=== PATIENT | female | born 1980 | race Caucasian/White ===

== ENCOUNTER 2017-01-13 03:34 | Emergency (ER) | payer OTHER ==
[~2017-01-13] VITALS: Ht 175.3 cm; Wt 65.8 kg
--- OUTSIDE RECORDS SUMMARY | 2017-01-13 03:44 | External Medical Summary Rpt | CCD ---
Author Author MARCELL Address Unknown Phone [email or web address] Purpose Continuity of Care Document - 09-06-2016 through 2016
--- OUTSIDE RECORDS SUMMARY | 2017-01-13 03:44 | External Medical Summary Rpt | CCD ---
Author Author MARCELL Address Unknown Phone Purpose Continuity of Care Document - 09-06-2016 through 2016
--- OUTSIDE RECORDS SUMMARY | 2017-01-13 03:44 | External Medical Summary Rpt | CCD ---
Author Author [employer] Organization [employer] Address Unknown Phone Unavailable Purpose Continuity of Care Document - through 2016
--- OUTSIDE RECORDS SUMMARY | 2017-01-13 03:45 | External Medical Summary Rpt ---
Author Author MARCELL Valerio, [employer] Organization [employer] Address Unknown Phone Unavailable Results Thyroxine (T4) free [Mass/volume] in Serum or Plasma Observa Value Referen Units Interpr Notes Date ti ce etation Range Thyroxine 0.76 - ng/dL Normal No Sep 06 (T4) 1.46 informati 2016 free on in 11:41 AM [Mass/vol source ume] in data Serum or Plasma Thyrotropin [Units/volume] in Serum or Plasma Observa Value Referen Units Interpr Notes Date ti ce etation Range Thyrotrop 0.358 - uIU/ml No No Sep 06 in 3.740 informati informati 2016 [Units/vo on in on in 11:41 AM lume] in source source Serum or data data Plasma
--- OUTSIDE RECORDS SUMMARY | 2017-01-13 03:45 | External Medical Summary Rpt | CCD ---
Demographics Preferred Language Ecuadorean Marital Status Unknown Pentecostal Affiliation Unknown Race Unknown Ethnic Group Unknown Author Author , MARCELL FAITH Address Unknown Phone Immunization Unable to retrieve immunization data due to connection failure with Immunization Registry. Please try again later.
--- OUTSIDE RECORDS SUMMARY | 2017-01-13 03:45 | External Medical Summary Rpt | CCD ---
Demographics Preferred Language Sierra Leonean Marital Status Unknown Voodoo Affiliation Unknown Race Unknown Ethnic Group Unknown Author Author , MARCELL FAITH Address Unknown Phone Immunization Unable to retrieve immunization data due to connection failure with Immunization Registry. Please try again later.
[2017-01-13] MEDS ORDERED: HYDROXYZINE HCL25 M1 PO (03:52)
[2017-01-13] MEDS ORDERED: LEVOTHYROXIN0.137 M1 PO (03:53)
[2017-01-13] MEDS ORDERED: ESCITALOPRAM10 M1 PO (03:53)
[2017-01-13] MEDS ORDERED: DICYCLOMINE HCL20 MG PO (03:53)
[2017-01-13] MEDS ORDERED: PROAIR HFA0.09 MG/AC IH (03:54)
--- NOTE | 2017-01-13 04:13 | Emergency Room Report ---
History of Present Illness Time Seen by [id number] Presenting Problem in Triage Pt arrived:Walked Presenting Problem:C/O PAIN TO LEFT SIDE OF ABD THAT RADIATES TO UPPER BACK, C/O VOMITING AND DIARRHEA X 2 TO [address] ARCHULETA ORDER WELLUBUTIN, WAS STOP AFTER 4 DAYS, PATIENT REPORTS ANXIETY ISSUES, REPORTS FALLING APROXIMATE 3 WEEKS AGO AND HIT HER HEAD Onset of symptoms date/time:12/23/16/ or onset unknown for:MEDICAL HX UNKNOWN Treatment Prior to Arrival: SEEN DR. 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 N Clinical Suspician of Infection? N Mental Status: 1 - Regular (Normal Baseline) Sepsis Risk:Low Sepsis Risk Have you (or family members/close friends) recently traveled outside the [place]? N If Yes, where/when: Have you had exposure to infectious disease within the past month? N TB? Other? Specify: Comment The patient complains of LEFT sided abdominal pain, vomiting, and diarrhea. She has had left-sided pain off and on for about 2 weeks. Pain is in the LEFT side of her abdomen diffusely into her LEFT hip and back area. She initially saw her shipbuilding draftsperson, Dr. Lemon. She was put on Bentyl. She followed up with her primary care physician, Dr. Archuleta, and it was felt symptoms might be related to anxiety and irritable bowel syndrome. She was put on Wellbutrin one week ago and had a bad reaction after 4 doses and it was stopped. She was put on Lexapro, told to begin taking it after one week. She had her first dose tonight and got worse. She has had bad vomiting and diarrhea since Saturday 5 days ago. She has not eaten much of anything since Saturday 2 days ago. states she is having "panic attacks" every evening starting at about 7 PM for one week. This is new for her. ALLERGIES Coded Allergies: Penicillins (Mild, I-RASH 01/13/17) bupropion (From WELLBUTRIN) (Mild, SEVERE ANXIETY, NAUSEA AND PAIN 01/13/17) Home Medications Reported Medications HYDROXYZINE HCL (Hydroxyzine HCl) 25 MG PO TID #30 Levothyroxine Sodium (Levothyroxine 0.137MG) 0.137 MG PO DAILY #27 Escitalopram Oxalate 10 MG PO DAILY #30 Dicyclomine Hcl (Dicyclomine Tab) 20 MG PO Q6HP PRN STOMACH CRAMP #120 Albuterol Sulfate (Proair Hfa) 1 PUFF IH Q6HP PRN BREATHING #9 History Medical History General CAD? No Angina: No VT: No Hypertension? Yes Hyperlipidemia? No CHF? No DVT? No PE? No COPD? No Asthma? No Anemia? No GERD? Yes Gastric ulcers? No GI Bleed? No Hernia? No Thyroid Problems? Yes Hypothyroidism? Yes CVA? No Seizures? No Diabetes? No Renal Insuffiency? No End Stage Renal Disease? No UTI? No Stones? No BPH? No GB Disease: No Nephritic Syndrome? No Asplenia? No Hepatitis? No Sickle Cell Disease? No Arthritis? No Migraines? Yes Cataracts? No Glaucoma? No MRSA? Yes HIV? No TB? No Anxiety? Yes Depression? Yes Cancer? Yes Site: LEFT LEG More? 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 LMP N/A Social History Smoking Hx Smoker: Former Smoker Tobacco: No Alcohol Alcohol: No Review of Systems All Other Systems Reviewed and Negative Constitutional denies fever Gastrointestinal abdominal pain, diarrhea, nausea, vomiting Physical Exam Vital Signs Vital Signs Date Time Temp Pulse Resp B/P Pulse O2 O2 Flow FiO2 Ox Delivery Rate 01/13 0610 97.8 60 20 109/54 100 01/13 0602 97.8 60 20 109/54 100 01/13 0600 20 01/13 0447 14 01/13 0343 97.8 80 12 148/75 97 General Appearance no apparent distress Eye Exam - bilateral eye normal exam, bilateral eye PERRL, bilateral eye EOMI Ear, Nose, Throat hearing grossly normal, normal ENT inspection Neck normal inspection, non-tender, supple, full range of motion Respiratory Status Yes: trachea midline, chest symmetrical. No: respiratory distress. Lung Sounds bilateral: normal breath sounds, lungs clear. Cardiovascular normal exam, regular rate/rhythm, no peripheral edema, no gallop, no JVD, no murmur, no rub, normal peripheral pulses Peripheral Pulses Pulses normal Yes Gastrointestinal normal bowel sounds, soft, no organomegaly, no guarding, no rebound, tenderness (generalized, more on left) Back no CVA tenderness Extremities non-tender, normal range of motion, normal inspection Neurologic alert, oriented x 3 Mental status anxious Skin intact, normal color, warm/dry Medical Decision Making LABS/Meds/Orders Pt receiving controlled substance in ED? Yes Phillip was queried for this patient? Yes Comment [id number] rxs. Results/Orders Laboratory Tests 01/13/17428: Urine Color YELLOW, Urine Appearance CLEAR, Urine pH 6.0, Ur Specific Hasty <= 1.005, Urine Protein NEGATIVE, Urine Ketones 1+ H, Urine Blood TRACE-INTACT, Urine Nitrate NEGATIVE, Urine Bilirubin NEGATIVE, Urine Urobilinogen 0.2, Ur Leukocyte Esterase NEGATIVE, Urine RBC OCC, Ur Squamous Epith Cells 5-10, Urine Glucose NEGATIVE 01/13/17425: Free T4 Cancelled 01/13/17424: Stl Aeromonas (PCR) Cancelled, Stl Cyclospora species Cancelled, Stool Rotavirus (PCR) Cancelled, Stool Astrovirus (PCR) Cancelled, Stool Campylobacter PCR Cancelled, Stool Cryptosporidium PCR Cancelled, Stl E. histolytica PCR Cancelled , Stool Giardia Lamblia PCR Cancelled, Stl P. shigelloides PCR Cancelled, Stool Sapovirus (PCR) Cancelled, Stool Vibrio (PCR) Cancelled, Stl Vibrio cholerae PCR Cancelled, Stl Norovirus GI/GII PCR Cancelled, Adenovirus (PCR) Cancelled, C. difficile Tox (PCR) Cancelled, E. coli (PCR) Cancelled, Salmonella (PCR) Cancelled, Yersinia (PCR) Cancelled 01/13/17407: TSH 0.22 L, Free T4 1.24 01/13/17407: Sodium 142, Potassium 3.8, Chloride 106, Carbon Dioxide 25, BUN 5 L, Creatinine 0.6, Estimated Creat Clear 135, Estimated GFR (MDRD) 113, Glucose 102, Calcium 9.1, Total Bilirubin 0.4, AST 18, ALT 15, Alkaline Phosphatase 49, Total Protein 7.8, Albumin 4.2, Globulin 3.6 H, Albumin/Globulin Ratio 1.2, Amylase 32, Lipase 88, WBC 8.3, RBC 4.72, Hgb 13.7, Hct 41.8, MCV 88.5, RDW 12.6, Plt Count 223, MPV 7.8, Gran % 76.7, Gran # 6.4, Lymphocytes % 16.9, Monocytes % 4.2, Eosinophils % 1.8, Basophils % 0.5, Lymphocytes # 1.4, Monocytes # 0.4, Eosinophils # 0.2, Basophils # 0.0, PUBS MCHC 32.8, MCH 29.0 Current Medication Orders Sig/Stacy Start time Last Medication Dose Route Stop Time Status Admin Lorazepam 1 MG ONCE ONE 01/13 06 DC 01/13 IV 01/13 0601 0600 Lorazepam 0 .STK-MED ONE 01/13 0559 DC .ROUTE Ketorolac 0 .STK-MED ONE 01/13 447 DC Tromethamine .ROUTE Ondansetron HCl 0 .STK-MED ONE 01/136 DC .ROUTE Ketorolac 30 MG ONCE ONE 01/135 DC 01/13 Tromethamine IV 01/136 0447 Ondansetron HCl 4 MG ONCE ONE 01/135 DC 01/13 IV 01/13 0446 0446 Sodium Chloride 1,000 ML .Q1H1M 01/13 0430 DC 01/13 IV 01/13 0530 0428 Sodium Chloride 1,000 ML .STK-MED ONE 01/13 0426 DC IV Sodium Chloride 10 ML PRN PRN 01/13 0400 DCD IV 01/14 0356 Sodium Chloride 10 ML PRN PRN 01/13 0400 DCD IV 01/14 0356 Orders Procedure Date/time Status DIET-NOTHING BY MOUTH 01/13 B Active THYROID STIMULATING HORMONE 01/13 426 Complete FREE T4 01/[address] ABD & PELVIS W/O CONTRAST 01/[address] ABD/PELVIS REQ 01/13 357 Active IV SALINE LOCK 01/13 357 Active URINALYSIS/COMPLETE 01/13 357 Complete URINE 01/13 357 Complete LIPASE 01/13 357 Complete CBC WITH AUTO DIFF 01/13 357 Complete CHEM 12 PROFILE 01/13 357 Complete AMYLASE 01/13 357 Complete XRAY/CT/US XRAY/CT/US CT abdomen, pelvis Comment CT scan interpreted by [facility] radiologist. Faxed report received and reviewed: 5 cm RIGHT ovarian cyst. Progress - 5:45 AM: states that patient is having waves of panic. Patient and are requesting a dose of medication for anxiety to help her sleep. Departure Departure Disposition DC Home or Self Care(routine) Clinical Impression Primary Impression: Left sided abdominal pain Secondary Impressions: Anxiety Diarrhea Qualifiers: Diarrhea type: unspecified type Qualified Code: R19.7 - Diarrhea, unspecified Vomiting Qualifiers: Vomiting type: unspecified Vomiting Intractability: non-intractable Nausea presence: with nausea Qualified Code: R11.2 - Nausea with vomiting, unspecified Condition STABLE Referrals Joao Archuleta MD (Family) Patient Instructions DI for Abdominal Pain-Adult, DI for Diarrhea and Traveler's Diarrhea -- Adult, DI for Vomiting -- Adult Additional Instructions Your TSH level is 0.22. Do not take thyroid replacement today. Call your physician tomorrow for further instructions regarding your thyroid replacement dosage. Do not take Lexapro today. Call your doctor tomorrow to discuss whether to continue this medication. Follow-up with your shipbuilding draftsperson for your ovarian cyst. Additional instructions for ABDOMINAL PAIN: See your physician as soon as possible for further evaluation. Return immediately if worsening abdominal pain, vomiting, shortness of breath, fever, vomiting of blood or abdominal distention. Prescriptions Current Visit Scripts Ondansetron (Zofran 4MG Odt) 4 MG PO Q8HP PRN NAUSEA AND VOMITING #10 ODT Loperamide Hcl (Loperamide) 2 MG PO Q6HP PRN diarrhea #10 CAP ED Critical Care Critical Care No at [id number]
[2017-01-13 04:18] LABS: HEMOGLOBIN 13.7 g/dL (12.2-16.2); LYMPH # 1.4 K/mm3 (0.7-4.5); LYMPH % 16.9 % (10-50.0)
[2017-01-13 04:38] LABS: URINE BILIRUBIN - DIPSTICK NEGATIVE (NEG); URINE BLOOD TRACE-INTACT (NEG)
[2017-01-13] MEDS ORDERED: ZOFRAN ODT4 MG PO (05:55)
[2017-01-13] MEDS ORDERED: IMODIUM 2MG. CAP2 MG PO (05:55)
[2017-01-13 06:10] VITALS: BP 109/54
--- NOTE | 2017-01-13 12:03 | RADIOLOGY REPORT PS360 ---
CT ABD PELVIS W/O CONTRAST Ordering Physician: Shankar Soliz MD Patient Age: 36 years: Female HISTORY: LEFT SIDE ABD PAIN WITH N/V/D TECHNIQUE: Helical CT scanning performed through abdomen and pelvis with no oral nor IV contrast utilized. Sagittal and coronal reconstructions on CT workstation. COMPARISON :No previous for comparison FINDINGS Lung bases. Clear no active disease. Heart normal size. Abdomen/pelvis. Lack of oral and IV contrast decreases sensitivity. Liver, spleen, pancreas unremarkable on this limited noncontrast study. Gallbladder unremarkable Adrenals unremarkable.. Kidneys: Unremarkable . No urinary calculi or obstruction. Ureters unremarkable PELVIS. Enlarged uterus with IUD in place. IUD seems to be appropriately positioned within this retroflexed retroverted uterus. Small amount of fluid the cul-de-sac most likely physiologic URINARY BLADDER. Diffuse wall thickening of requires correlation with urinalysis to exclude cystitis. RIGHT OVARY:. Enlarged and contains a large cyst. Overall the right ovary measures up to 5.8 cm x AP, 6.2 cm height , 4.5 cm transverse but the right ovary is mainly comprised by large cyst measuring nearly 5.5 cm size maximally.. LEFT OVARY: located superior & to left of the uterus posteriorly. Left ovary upper normal in size: 4 cm maximally x 2.6 cm transverse GI TRACT.. No bowel dilatation or obstruction. Moderate stool throughout the colon. No free air. No free fluid. Normal ileum appears normal. Appendix appears normal. No significant retroperitoneal mesenteric adenopathy. Only a few small nodes scattered at the upper mesenteric region. No pelvic nor angle adenopathy.. . Unremarkable Osseous structures intact IMPRESSION: 1. Enlarged right ovary.. Measuring nearly 6 cm. 2. Associated Large Right ovarian cyst 5.5 cm cyst warrants ultrasound follow-up . 3. Generous girth, retroverted retroflexed uterus w/ IUD in place also warrants ultrasound follow-up. Only Minimal physiologic fluid in cul-de-sac. 4. Urinary bladder. Generous wall thickness could reflect cystitis versus lack of distention. Requires correlation w? urinalysis. 5.Appendix normal..GI tract unremarkable. Generous wall thickness at stomach most likely reflecting is contracted state although conceivably could reflect gastritis if symptoms of such.
== END 2017-01-13 06:10 | disposition home or self-care (01) ==
LOC: ER 03:34
PROVIDERS: Emergency Medicine
DX: N83.291 Other ovarian cyst, right side (principal); F41.8 Other specified anxiety disorders; R10.12 Left upper quadrant pain; R19.7 Diarrhea, unspecified; R11.2 Nausea with vomiting, unspecified; I10 Essential (primary) hypertension; K21.9 Gastro-esophageal reflux disease without esophagitis; Z88.0 Allergy status to penicillin; E03.9 Hypothyroidism, unspecified
CPT/HCPCS: J2405